=== PATIENT | female | born 1990 | race Caucasian/White ===

== ENCOUNTER → 2021-04-16 | Outpatient (CLI) | payer OTHER ==
--- NOTE | 2021-04-16 13:46 | XR ---
Cervical spine HISTORY: Neck pain 5 views of the cervical spine There is no evident foraminal encroachment. Cervical vertebral bodies show preserved height, alignmen t, and bone mineralization. Disc spaces are remarkable for loss of height at C5-6, there is associate d spondylosis. Some mild facet arthropathy changes are present. Odontoid view is limited. IMPRESSION: Degenerative disc disease.
--- NOTE | 2021-04-16 13:47 | XR ---
Lumbar spine HISTORY: Low back pain 3 views the lumbar spine Lumbar vertebral bodies show preserved height, alignment, and bone mineralization. There is a slight spinal curvature. Loss of disc height present L5-S1, possibly L4-5. There is associated spondylosis. Sclerosis present in the posterior elements of the lower lumbar spine. IMPRESSION: Degenerative disc disease and facet arthropathy, slight spinal curvature.
--- NOTE | 2021-04-16 14:57 | XR ---
Left wrist HISTORY: Pain Four views the left wrist Bone mineralization, joint spaces and alignment are maintained. IMPRESSION: No fracture or dislocation, consider wrist MRI.
== END | disposition home or self-care (01) ==
LOC: RADXRMAIN 10:32
PROVIDERS: ATTEND Family Medicine
DX: M51.36 Other intervertebral disc degeneration, lumbar region (principal); M50.322 Other cervical disc degeneration at C5-C6 level; M43.9 Deforming dorsopathy, unspecified; M47.896 Other spondylosis, lumbar region; M25.532 Pain in left wrist
CPT/HCPCS: 72050; 72100